=== PATIENT | female | born 1945 | race Caucasian/White ===

== ENCOUNTER → 2018-04-17 17:55 | Outpatient (CLI) | payer MEDICARE, OTHER ==
[2016-05-29 17:35] VITALS: BMI 27.2
[~2018-04-17 17:55] MED LIST: ELIQUIS2.5 MG PO; LISINOPRIL10 MG PO; MS CONTIN15 MG PO; MULTIPLE VITAMI1 TA1 PO; OXYCODONE HCL5 MG PO
== END | disposition home or self-care (01) ==
LOC: D.MAMMO 11:30
DX: Z12.31 Encounter for screening mammogram for malignant neoplasm of breast (principal)

== ENCOUNTER → 2019-09-15 20:05 | Outpatient (CLI) | payer MEDICARE, OTHER ==
[2016-05-29 17:35] VITALS: BMI 27.2
== END | disposition home or self-care (01) ==
LOC: D.MAMMO 09:00
PROVIDERS: ATTEND Family Medicine
DX: Z12.31 Encounter for screening mammogram for malignant neoplasm of breast (principal)

== ENCOUNTER 2020-12-27 14:30 | Outpatient (CLI) | payer MEDICARE, OTHER ==
[2016-05-29 17:35] VITALS: BMI 27.2
== END 2020-12-27 23:59 | disposition home or self-care (01) ==
LOC: D.MAMMO 14:30
PROVIDERS: ATTEND Family Medicine
DX: Z12.31 Encounter for screening mammogram for malignant neoplasm of breast (principal)

== ENCOUNTER → 2021-02-03 09:41 | Outpatient (CLI) | payer MEDICARE, OTHER ==
[2016-05-29 17:35] VITALS: BMI 27.2
== END | disposition home or self-care (01) ==
LOC: D.MRI 09:41
PROVIDERS: ATTEND Nurse Practitioner
DX: M54.5 Low back pain (principal)